=== PATIENT | female | born 1985 | race Caucasian/White ===

== ENCOUNTER 2018-08-26 11:26 | Emergency (ER) | payer BC, OTHER ==
[~2018-08-26] VITALS: Ht 162.6 cm; Wt 94.0 kg
[2018-08-26 12:04] LABS: BASOPHILS % (AUTO) 0.1 % (0-1); EOSINOPHILS # (AUTO) 0.2 X10'3 (0-0.9); EOSINOPHILS % (AUTO) 1.8 % (0-6); HEMATOCRIT 41.1 % (35.0-45.0); HEMOGLOBIN 13.8 g/dl (12.0-16.0); LYMPHOCYTES # (AUTO) 0.6 X10'3 (1.1-4.8); LYMPHOCYTES % (AUTO) 5.6 % (21-51); MEAN CORPUSCULAR HGB CONC 33.5 % (33.0-36.5); MEAN CORPUSCULAR VOLUME 92.5 FL (78-98); MEAN PLATELET VOLUME 8.6 FL (7.4-10.4); MONOCYTES # (AUTO) 0.3 X10'3 (0-0.9); MONOCYTES % (AUTO) 2.5 % (2-12); NEUTROPHILS # (AUTO) 9.7 X10'3 (1.8-7.7); PLATELET COUNT 267 X10'3 (140-440); RED BLOOD COUNT 4.45 X10'6 (4.20-5.60); RED CELL DISTRIBUTION WIDTH 13.4 % (11.5-14.5); WHITE BLOOD COUNT 10.8 X10'3 (4.5-11.0)
[2018-08-26 12:11] LABS: ALANINE AMINOTRANSFERASE 24 U/L (12-78); ALBUMIN 4.1 G/DL (3.4-5.0); ALBUMIN/GLOBULIN RATIO 1.1 (1.1-1.5); ALKALINE PHOSPHATASE 63 IU/L (46-116); ANION GAP 9 (8-16); ASPARTATE AMINO TRANSFERASE 20 U/L (10-37); BILIRUBIN,TOTAL 0.3 MG/DL (0.1-1.0); BLOOD UREA NITROGEN 14 MG/DL (7-18); BUN/CREATININE RATIO 14.1 (6.6-38.0); CALCIUM 8.8 MG/DL (8.5-10.1); CHLORIDE 106 MMOL/L (99-107); CREATININE 0.99 MG/DL (0.40-0.90); GLUCOSE 112 MG/DL (70-104); POTASSIUM 3.9 MMOL/L (3.5-5.1); SODIUM 143 MMOL/L (135-145); TOTAL CARBON DIOXIDE 27.9 MMOL/L (24-32); eGFR 64 ML/MIN
[2018-08-26 13:01] LABS: URINE HCG NEGATIVE (NEG)
[2018-08-26 13:08] LABS: CLARITY,URINE CLEAR (Clear); COLOR,URINE YELLOW (Yellow); GLUCOSE, URINE NEGATIVE (Neg); KETONES,URINE 40 mg/dl (Neg); LEUKOCYTE ESTERASE ,URINE NEGATIVE (Neg); NITRITES, URINE NEGATIVE (Neg); OCCULT BLOOD,URINE LARGE (Neg); PROTEIN,URINE NEGATIVE (Neg); UROBILINOGEN,URINE 0.2 E.U/dL (0.2-1.0)
[2018-08-26 13:10] LABS: UA COLLECTION TYPE CLN CATCH MIDSTREAM
[2018-08-26] MEDS ORDERED: ondansetron/PF 4mg/2ml inj IV ONE (13:10)
[2018-08-26] MEDS ORDERED: ketorolac trometh. 30mg/ml inj. IV ONE (13:10)
[2018-08-26 13:22] LABS: WBC,URINE 0-4 /HPF (0-4)
[2018-08-26 13:23] LABS: BACTERIA,URINE FEW /HPF (Neg); SQUAMOUS EPITHELIAL CELL,UR FEW /LPF (FEW)
[2018-08-26 13:37] VITALS: BP 123/81
[2018-08-26] MEDS ORDERED: ONDA4TAB9 SL (14:12)
[2018-08-26] MEDS ORDERED: KETO10TA2 PO (14:12)
[2018-08-26] MEDS ORDERED: TADA20TA PO (14:12)
[2018-08-26] MEDS ORDERED: HYDR-4353 PO (14:12)
== END 2018-08-26 14:32 | disposition home or self-care (01) ==
LOC: ER 11:26
DX: N13.2 Hydronephrosis with renal and ureteral calculous obstruction (principal); Z88.2 Allergy status to sulfonamides
CPT/HCPCS: 36415; 74176; 80053; 81001; 81025; 85025; 85610; 96374; 96375; 99285; J1885; J2405

== ENCOUNTER 2020-11-12 18:14 | Emergency (ER) | payer OTHER, BC ==
[~2020-11-12] VITALS: Ht 162.6 cm; Wt 90.0 kg
[~2020-11-12 18:14] MED LIST: KETO10TA2 PO; TADA20TA PO
[2020-11-12 18:18] VITALS: BP 162/97
== END 2020-11-12 19:29 | disposition home or self-care (01) ==
LOC: ER 18:15
DX: L03.317 Cellulitis of buttock (principal); F17.200 Nicotine dependence, unspecified, uncomplicated; Z98.890 Other specified postprocedural states; Z72.89 Other problems related to lifestyle; Z79.899 Other long term (current) drug therapy
CPT/HCPCS: 99281